=== PATIENT | female | born 1960 | race Caucasian/White ===

== ENCOUNTER 2016-08-16 07:18 | Day surgery (SDC) | payer OTHER ==
--- NOTE | ~2016-08-16 | EGD ---
EGD REPORT [facility] [address] [address] NAME: RACHEL PAEZ : [birth year] STATUS : REG [facility]#: [id number] AGE: 55 ADM/REG DATE : 08/16/16 MR#: [id number] REPORT SERV DATE: 08/16/16 DICTATED BY: CATARINO MARTIN DATE: 08/16/16 REPORT STATUS : Draft TRANSCRIBED BY: [facility] DATE: 08/16/16 Endoscopy Center Patient Name: Rachel Paez Date of : 1960 Attending MD: CATARINO MARTIN MD Procedure Date No Time: 08/16/2016 Procedure: Upper GI endoscopy Indications: Epigastric abdominal pain, Dysphagia, Heme positive stool, Diarrhea Referring MD: EVER BLANCO MD Medicines: as per anesthesia Complications: No immediate complications. Procedure: Pre-Anesthesia Assessment: - ASA Grade Assessment: II - A patient with mild systemic disease. After obtaining informed consent, the endoscope was passed under direct vision. Throughout the procedure, the patient's blood pressure, pulse, and oxygen saturations were monitored continuously. The GIF H190 [id number] was introduced through the mouth, and advanced to the third part of duodenum. The upper GI endoscopy was accomplished without difficulty. The patient tolerated the procedure well. Findings: A mild Schatzki ring (acquired) was found at the gastroesophageal junction. The scope was withdrawn. Dilation was performed with a [place] dilator with no resistance at 46 Fr. A few sessile polyps were found in the gastric fundus. Biopsies were taken with a cold forceps for histology. The examined duodenum was normal. Biopsies were taken with a cold forceps for histology. Impression: - Mild Schatzki ring. Dilated. - A few gastric polyps. Biopsied. - Normal examined duodenum. Biopsied. Recommendation: - Await pathology results. Procedure Code(s): --- Professional --- 28012, Esophagogastroduodenoscopy, flexible, transoral; with biopsy, single or multiple 06541, Dilation of esophagus, by unguided sound or bougie, single or multiple passes EGD REPORT [facility] [address] [place] [address] [place] [address] NAME: RACHEL PAEZ : [birth year] STATUS : REG [facility] PAT#: [id number] AGE: 55 ADM/REG DATE : 08/16/16 MR#: [id number] REPORT SERV DATE: 08/16/16 DICTATED BY: CATARINO MARTIN. DATE: 08/16/16 REPORT STATUS : Draft TRANSCRIBED BY: [employer] DATE: 08/16/16 Diagnosis Code(s): --- Professional --- K22.2, Esophageal obstruction K31.7, Polyp of stomach and duodenum R10.13, Epigastric pain R13.10, Dysphagia, unspecified R19.5, Other fecal abnormalities R19.7, Diarrhea, unspecified CPT copyright 2013 [employer]. All rights reserved. The codes documented in this report are preliminary and upon vehicle dynamics engineer review may be revised to meet current compliance requirements. CATARINO MARTIN MD 08/16/2016 8:38 AM This report has been signed electronically. Number of Addenda: 0 Note Initiated On: 08/16/2016 8:19 AM Scope Withdrawal Time 0 hours 0 minutes 0 seconds [address] [place] [address]
--- NOTE | ~2016-08-16 | EGD ---
EGD REPORT [facility] [address] [address] NAME: RACHEL PAEZ : [birth year] STATUS : REG [facility]#: [id number] AGE: 55 ADM/REG DATE : 08/16/16 MR#: [id number] REPORT SERV DATE: 08/16/16 DICTATED BY: CATARINO MARTIN DATE: 08/16/16 REPORT STATUS : Draft [facility]ANSCRIBED BY: [facility] DATE: 08/16/16 Endoscopy Center Patient Name: Rachel Paez Date of : 1960 Attending MD: CATARINO MARTIN MD Procedure Date No Time: 08/16/2016 Procedure: Colonoscopy Indications: Clinically significant diarrhea of unexplained origin, Heme positive stool, Rectal bleeding, FH of Colonic Polyps - 1st degree relative Referring MD: EVER BLANCO MD Medicines: as per anesthesia Complications: No immediate complications. Procedure: Pre-Anesthesia Assessment: - ASA Grade Assessment: II - A patient with mild systemic disease. After I obtained informed consent, the scope was passed under direct vision. Throughout the procedure, the patient's blood pressure, pulse, and oxygen saturations were monitored continuously. The PCF [id number] was introduced through the anus and advanced to the cecum, identified by appendiceal orifice and ileocecal valve. The colonoscopy was performed without difficulty. The patient tolerated the procedure. The quality of the bowel preparation was adequate to identify polyps. Findings: The perianal and digital rectal examinations were normal. A few small and large-mouthed diverticula were found in the sigmoid colon, in the transverse colon and in the ascending colon. Internal hemorrhoids were found during endoscopy and were mild. Four biopsies were obtained in the rectum and in the ascending colon with cold forceps for histology. Impression: - Diverticulosis in the sigmoid colon, in the transverse colon and in the ascending colon. - Internal hemorrhoids. - Four biopsies were obtained in the rectum and in the ascending colon. Recommendation: - Await pathology results. - Repeat colonoscopy in 5 years for surveillance. Procedure Code(s): --- Professional --- 80845, Colonoscopy, flexible, proximal to splenic EGD REPORT [address] [address] NAME: RACHEL PAEZ : [birth year] STATUS : REG [facility] PAT#: [id number] AGE: 55 ADM/REG DATE : 08/16/16 MR#: [id number] REPORT SERV DATE: 08/16/16 DICTATED BY: CATARINO MARTIN. DATE: 08/16/16 REPORT STATUS : Draft TRANSCRIBED BY: [employer] DATE: 08/16/16 flexure; with biopsy, single or multiple Diagnosis Code(s): --- Professional --- K64.8, Other hemorrhoids K57.30, Diverticulosis of large intestine without perforation or abscess without bleeding R19.7, Diarrhea, unspecified R19.5, Other fecal abnormalities K62.5, Hemorrhage of anus and rectum Z83.71, Family history of colonic polyps CPT copyright 2013 [employer]. All rights reserved. The codes documented in this report are preliminary and upon learning support services director review may be revised to meet current compliance requirements. CATARINO MARTIN MD 08/16/2016 9:05 AM This report has been signed electronically. Number of Addenda: 0 Note Initiated On: 08/16/2016 8:17 AM Scope Withdrawal Time 0 hours 10 minutes 29 seconds [address] [place] [address]
[~2016-08-16 07:18] MED LIST: ADVIL PO; BIO-IDENTICAL HORMON; CLARIT10 PO; ENDOMETRIN100 MG PO; EXCEDRIN MIGRAINE PO; FISH-EPA1000 MG PO; NEXIUM40 PO; ZYRTEC ALLGY10 MG PO
== END 2016-08-16 23:59 | disposition home or self-care (01) ==
LOC: DMU 07:18
PROVIDERS: Internal Medicine Gastroenterology
PROC: 0DBP8ZX Excision of Rectum, Via Natural or Artificial Opening Endoscopic, Diagnostic (ICD-10-PCS; 2016-08-16)
PROC: 0DBK8ZX Excision of Ascending Colon, Via Natural or Artificial Opening Endoscopic, Diagnostic (ICD-10-PCS; 2016-08-16)
PROC: 0DB68ZX Excision of Stomach, Via Natural or Artificial Opening Endoscopic, Diagnostic (ICD-10-PCS; principal; 2016-08-16 08:00)
PROC: 0DB98ZX Excision of Duodenum, Via Natural or Artificial Opening Endoscopic, Diagnostic (ICD-10-PCS; 2016-08-16 08:00)
PROC: 0D747ZZ Dilation of Esophagogastric Junction, Via Natural or Artificial Opening (ICD-10-PCS; 2016-08-16 08:00)
DX: K29.80 Duodenitis without bleeding (principal); K22.2 Esophageal obstruction; K31.7 Polyp of stomach and duodenum; R10.13 Epigastric pain; R13.10 Dysphagia, unspecified; R19.5 Other fecal abnormalities; R19.7 Diarrhea, unspecified; K64.8 Other hemorrhoids; H91.90 Unspecified hearing loss, unspecified ear; M19.90 Unspecified osteoarthritis, unspecified site; K58.9 Irritable bowel syndrome, unspecified; K57.30 Diverticulosis of large intestine without perforation or abscess without bleeding; E66.9 Obesity, unspecified; K62.5 Hemorrhage of anus and rectum; Z83.71 Family history of colonic polyps; Z91.040 Latex allergy status; Z90.710 Acquired absence of both cervix and uterus; Z98.890 Other specified postprocedural states; Z79.899 Other long term (current) drug therapy; Z79.890 Hormone replacement therapy
CPT/HCPCS: 88305